=== PATIENT | female | born 1980 | race Caucasian/White ===

== ENCOUNTER 2020-04-17 16:50 | Outpatient (CLI) | payer OTHER, SELFPAY ==
--- NOTE | ~2020-04-17 | MR_ITS ---
EXAMINATION: MR knee RT wo con DATE: 04/17/2020 17:36 INDICATION: Right knee pain. Chondromalacia patellae TECHNIQUE: Magnetic resonance imaging (MRI) of the right knee was performed without intravenous contr ast. Sequences included coronal PD-weighted FSE, coronal PD-weighted FS FSE, sagittal T2-weighted FS E, sagittal PD-weighted FS FSE and axial PD weighted fat saturated FSE. COMPARISON: None. FINDINGS: Medial compartment: Medial meniscus is normal. Articular cartilage is normal. Lateral compartment: Horizontal tear of the anterior horn of the lateral meniscus which extends to the cephalad articular surface. There is a large multilobulated para meniscal cyst extending medially along the periphery of the anterior horn and along the transverse meniscal ligament along the inferior surface of Hoffa's f at pad. Its entirety this measures 2.7 cm medial collateral, 1.7 cm AP and up to 1.0 cm in craniocaud al thickness. Cartilage thickness at the lateral tibial plateau with deep chondral fissuring centrall y and extending posteriorly with negligible underlying subarticular edema. Cartilage along the weight bearing lateral femoral condyle appears relatively preserved. Patellofemoral compartment: More region of chondral swelling without definitive fissuring at the central aspect of the medial tro chlea. Remainder of the cartilage in the patellofemoral compartment appears normal. Ligaments and tendons: Posterior cruciate ligament is normal. The anterior cruciate ligament appears intact but with a coupl e small intrasubstance ganglion cysts along the cephalad aspect of the ligament. The medial collatera l ligament and fibular collateral ligament complex are normal. The extensor mechanism is normal. The visualized medial and lateral hamstring tendons as well as the iliotibial band are normal. Fluid: Physiologic amount of fluid in the joint space. Suprapatellar plical band is present. No loose osteoc hondral bodies identified. Small Conteh's cyst extending for approximately 6 cm craniocaudally but leeanne suring only up to 12 x 7 mm in maximal transaxial dimensions. Osseous/other: Bone alignment is normal. No fracture or pathologic marrow replacing process. IMPRESSION: 1. Tear of the anterior horn of the lateral meniscus with 2.7 x 1.7 x 1.0 cm multilobulated para meni scal cyst extending along the inferior margin of Hoffa's fat pad anterior to the trochlear groove. 2. Regions of high-grade chondromalacia at the lateral tibial plateau and small region of low grade c hondral malacia at the medial trochlea. 3. Small Conteh's cyst. Reviewed, dictated and finalized at location A. COMPLIANCE INTERNSHIP IMPRESSION: 1. Tear of the anterior horn of the lateral meniscus with 2.7 x 1.7 x 1.0 cm mu ltilobulated para meniscal cyst extending along the inferior margin of Hoffa's fat pad anterior to the trochlear groove. 2. Regions of high-grade chondromalacia at the lateral tibial plateau and small region of low grade chondral malacia at the medial trochlea. 3. Small Conteh's cyst.
== END 2020-04-17 16:51 | disposition home or self-care (01) ==
LOC: ANHIMG 16:52
PROVIDERS: PCP Family Medicine; Visit Provider Orthopaedic Surgery
DX: M22.41 Chondromalacia patellae, right knee (principal); S83.281A Other tear of lateral meniscus, current injury, right knee, initial encounter; M71.21 Synovial cyst of popliteal space [Baker], right knee
CPT/HCPCS: 73721

== ENCOUNTER → 2020-05-09 00:32 | Outpatient (CLI) | payer OTHER, SELFPAY ==
[2020-05-09 20:38] LABS: SARS-CoV-2 RNA PCR Negative
== END ==
PROVIDERS: PCP Family Medicine; Visit Provider Orthopaedic Surgery
DX: Z01.812 Encounter for preprocedural laboratory examination (principal); Z20.822 Contact with and (suspected) exposure to COVID-19
CPT/HCPCS: C9803; U0003; U0005

== ENCOUNTER 2020-05-12 02:06 | Day surgery (SDC) | payer OTHER, SELFPAY ==
[2020-05-06 10:50] VITALS: BMI 30.7
--- NOTE | 2020-05-06 11:08 | PC.NURSE ---
Patient tested positive for Covid at the end of Nov/ beginning of Dec. Patient was not hospitalized and experienced only mild symptoms. Patient is asymptomatic at this time.
--- NOTE | 2020-05-11 11:01 | WPDANESEPPF ---
Anes - Initial Pre Proc Eval Procedure: Operation Date: 05/12/20 10:30 Proposed Procedures p Right Knee Arthroscopic Partial Lateral Meniscectomy with Cyst Excision - Raffy Staley MD Date/Time: 05/11/20 11:01 Surgeon: Raffy Staley MD Pre Op Diagnosis: right lateral meniscus tear,meniscal cyst Patient Data Age: 39 Gender: F Height: 1.68 m Weight: 86.18 kg Allergies Allergy/AdvReac Type Severity Reaction Status Date / Time codeine AdvReac Nausea Verified 05/12/20 09:25 Home Medications Medication Instructions Recorded Confirmed Type alprazolam 1 mg tablet 1 mg PO TID PRN 10/15/19 05/12/20 History bupropion HCl 450 mg 24 hr tablet, 450 mg PO DAILY 10/15/19 05/12/20 History extended release sumatriptan succinate 100 mg tablet 100 mg PO ONCE PRN #27 tablet 11/08/19 05/12/20 Rx topiramate 25 mg tablet 50 mg PO BID #360 tablet 11/08/19 05/12/20 Rx levonorgestrel 20 mcg/24 hours (6 1 device INTRAUTERINE .once every 02/12/20 05/12/20 History yrs) 52 mg intrauterine device 5 years ea ondansetron 8 mg disintegrating 8 mg PO Q8H PRN #30 tablet 02/14/20 05/12/20 Rx tablet thyroid (pork) 15 mg tablet 15 mg PO DAILY #30 tablet 03/30/20 05/12/20 Rx ibuprofen 800 mg PO Q6H PRN 05/06/20 05/12/20 History Patient hx anesthesia problems: none Family hx anesthesia problems: none PMFSH Past Medical History Medical History (Updated 05/11/20 @ 11:01 by Cornelio Urbina MD) Anxiety Depression Dysfunctional uterine bleeding High risk HPV infection 01/22/2020 HSV-1 (herpes simplex virus 1) infection Hx of migraine headaches Obesity Other jail (current) drug therapy Surgical History Surgical History H/O section 3--11, c/s, female, 6#1 Family History Family History Mother Hypertension CAD (coronary artery disease) Acute myocardial infarction Hypercholesteremia Father Diabetes mellitus Hypertension Hypothyroid Pulmonary fibrosis Hypercholesteremia Grandparent Diabetes mellitus grandmother Hypertension grandmother CAD (coronary artery disease) CHF (congestive heart failure) Alzheimer disease Carcinoma of colon grandmother Acute myocardial infarction grandmother Hypercholesteremia grandmother Leukemia Sibling Hypothyroid Social History Social History Smoking packs per day: 0.5 Smoking cigarettes per day: 10.0 Years smoked: 19 Smoking pack-years: 9.50 Smoking status: Current every day smoker Tobacco type: cigarettes Second hand tobacco smoke exposure: No Alcohol intake: never Substance use: never Substance use type: does not use Living arrangements: with family Spiritual care concerns: No Anes - Eval Final PreProcedure Day of Procedure 05/11/20 11:01 Patient weight: obese Heart: regular rate and rhythm Lungs: clear to auscultation and normal air movement Airway: Mallampati scale class II Neurological: alert and oriented Last oral intake: >/= 8 hours ASA classification: II Emergent: no Anesthetic plan: proceed Anesthesia type and monitoring: general LMA Informed Consent: The patient's anesthetic plan and its attendant risks and benefits were discussed with the patient/family/POA. Questions were solicited and answers provided to the satisfaction of the patient/family/POA.
[2020-05-12] VITALS (9 sets, daily range): BP systolic 105–141; BP diastolic 66–90; PULSE 67–99; RESP 14–20; TEMP 36.6–36.7; O2SAT 99–100
--- NOTE | 2020-05-12 07:13 | WPDHPUPDATE1 ---
History and Physical Update Update Date/Time: 05/12/20 07:13 History and Physical has been reviewed, including an updated exam of the patient. There are NO changes in the patient's condition. Risks, benefits, and alternatives have been discussed and questions answered. Patient agrees to proceed with procedure.
[2020-05-12] MEDS: ACETAMINOPHEN 500 MG TABLET 1000 MG PO (09:09)
[2020-05-12] MEDS: LACTATED RINGERS 1,000 ML 30 ML IV CONT ×2 (09:10→11:09)
[2020-05-12] MEDS: KETOROLAC 15 MG/ML VIAL (*BKC) IV PUSH (09:11)
[2020-05-12] MEDS: ceFAZolin 2 GM/D5W 50 ML 2 GM/50 ML BAG IVPB (10:06)
[2020-05-12] MEDS: BUPIVACAINE/EPINEPHRINE 0.5% 30 ML VIAL INFILTRATE (10:34)
--- NOTE | 2020-05-12 11:06 | PM.PROC ---
Procedure Note - Detailed Date of procedure: 05/12/20 Pre-op diagnosis: right lateral meniscus tear,meniscal cyst Post-op diagnosis: same Procedure performed: Arthroscopic partial lateral meniscectomy, and excision of large anterior meniscal cyst. Description of procedure: The cyst was behind the patellar tendon. There was tearing of the anterior horn of the lateral meniscus. Large bulbous cyst was anterior to the transverse inter meniscal ligament. This was a very robust structure. The cyst was manipulated and displaced posteriorly underneath this meniscus ligament. The cyst was then removed with the arthroscopic shaver. Moderate splitting and tearing of the anterior fibers of the lateral meniscus was treated with the shaver and the radiofrequency probe. The radiofrequency probe was also used to tighten and d?bride the tissues in the anterior fat pad area and the region of the cyst on the proximal tibia. The ACL had some evidence of low-grade partial injury. Some of the attachment appeared to be more posterior than is typical. It was quite functional with Alla's testing. Slight tightening with the radiofrequency probe at the lowest setting was performed where the fibers appeared slightly more lax anteriorly. The lateral compartment had significant grade 2/Iii chondromalacia with softening at the weight-bearing portion. Mild fraying of the inner edge of the meniscus was treated with debridement. However, most of the remaining lateral and posterior meniscus was intact. Some fibers of the ACL appeared to be displacing laterally slightly. These were easily debrided with the shaver. The femoral cartilage was entirely normal. The patella appeared normal as well. Evidence for lateral tilting was modest. The medial articular cartilage was normal as was the meniscus. No other abnormal findings or loose bodies in the suprapatellar pouch. Very subtle early ridge of reactive bone /osteophyte along the medial femoral condyle. No evidence of significant plica shelf adjacent. Anesthesia: GETA Surgeon: Raffy Staley MD Vice President Of Talent Management: Ivett Zeng PA-C Estimated blood loss (mL): 5 Complications: None Condition: stable Disposition: PACU Findings: Procedure Details: The patient was identified and the surgical site confirmed and signed in the preoperative holding area. Antibiotics were started per protocol. She was brought to the operative room and transferred to the OR table. A general anesthetic was administered. Supine position with the operative lower extremity position in the leg grimes after placement of a well padded tourniquet. The leg support was lowered and the contralateral limb was supported with a soft bolster. The knee was prepped and draped in the usual sterile fashion. A time-out was performed. The portal sites were marked and infiltrated with 0.5% Marcaine 20 mL. The limb was exsanguinated and the tourniquet inflated to 300 mL Hg. Standard inferolateral and inferomedial portals were established. Inflow was obtained with the saline pump. The camera was introduced. Diagnostic inspection of the joint was accomplished. The meniscus was debrided with the arthroscopic shaver and Radiofrequency probe. The cyst was manipulated into the joint and removed as described above. The ACL showed evidence of low-grade chronic injury. This was quite subtle but gentle debridement around the lateral and distal ACL combined with touching some of the looser areas with the radiofrequency probe, improve the overall appearance of the tendon. Dynamic functional testing was normal throughout. The arthroscopic instruments were removed. The tourniquet released and wounds closed with subcutaneous 3-0 Monocryl absorbable suture. Steri strips and a sterile dressing were applied. A light elastic wrap was placed. The patient was extubated and brought to the recovery room in stable condition.
[2020-05-12] MEDS: fentaNYL CITRATE INJ (*CRX) 100 MCG/2 ML VIAL 25 MCG IV PUSH ×2 (11:17→11:34)
--- NOTE | 2020-05-12 11:22 | SUR.PREOP ---
1107 NEURO ASSESSMENT DOCUMENTED BY THIS STAFF MEMBER WAS DONE AT 0900 NOT 1104
[2020-05-12] MEDS: oxyCODONE HCL (*CRX) 5 MG TAB IR PO (12:53)
--- NOTE | 2020-05-12 16:46 | SUR.PHASEII ---
[id number] spoke with pt about current pain medication situation. damian is also out of [place], told to call dr gardiner office and to go through the exchange to get a hold of him to give him this message about the prescription.
== END 2020-05-12 13:35 | disposition home or self-care (01) ==
PROVIDERS: PCP Family Medicine; Visit Provider Orthopaedic Surgery
PROC: (CPT 29870; principal; 2020-05-12 10:30)
DX: S83.281A Other tear of lateral meniscus, current injury, right knee, initial encounter (principal); M23.041 Cystic meniscus, anterior horn of lateral meniscus, right knee; X58.XXXA Exposure to other specified factors, initial encounter; M94.261 Chondromalacia, right knee; F41.8 Other specified anxiety disorders; B00.9 Herpesviral infection, unspecified; E66.9 Obesity, unspecified; Z68.32 Body mass index [BMI] 32.0-32.9, adult; F17.210 Nicotine dependence, cigarettes, uncomplicated
CPT/HCPCS: 29881; A9270; J0690; J1100; J1885; J2250; J2370; J2405; J2704; J3010; J7120

== ENCOUNTER 2020-05-29 11:18 | Outpatient (CLI) | payer OTHER, SELFPAY ==
[2020-05-29 12:46] LABS: HIV 1/2 Ab P24 Ag Result Negative (Negative)
[2020-05-29 13:30] LABS: Hepatitis B Surface Antigen Negative (Negative)
[2020-05-29 13:47] LABS: Hepatitis C Virus Antibody Negative (Negative)
[2020-06-01 09:55] LABS: Rapid Plasma Reagin Non-Reactive (NonReactive)
== END 2020-05-29 11:19 | disposition home or self-care (01) ==
LOC: ANHLAB 11:19
PROVIDERS: PCP Family Medicine; Visit Provider Obstetrics & Gynecology
DX: Z20.828 Contact with and (suspected) exposure to other viral communicable diseases (principal)
CPT/HCPCS: 36415; 86592; 86695; 86696; 86703; 86803; 87340; G0432

== ENCOUNTER 2020-11-16 14:01 | Outpatient (CLI) | payer OTHER, SELFPAY ==
--- NOTE | ~2020-11-16 | XR_ITS ---
XR lumbar spine 6V w bending DATE: 11/16/2020 14:56 INDICATION: Low back pain TECHNIQUE: Standing AP, lateral, coned lateral lumbosacral and oblique views. Standing flexion and ex tension lateral views. COMPARISON: None FINDINGS: There is mild rotatory dextroscoliosis of the lumbar spine. No fracture or bone destruction, spondylolysis or spondylolisthesis is detected. There is no instabil ity on flexion or extension. No spondylolysis or spondylolisthesis. The lumbar pedicles are intact. There is limited degenerative disc disease including mild degenerative disc disease at L1-2, minimal degenerative disc disease at L3-4. The sacroiliac joints are intact. IMPRESSION: Mild rotatory dextroscoliosis and mild degenerative disc disease Reviewed, dictated and finalized at location A.
[2020-11-16 19:52] LABS: Basophils Absolute Auto 0.1 K/mm3 (0.0-0.1); Basophils Percent Auto 0.8 % (0.2-1.2); Eosinophils Absolute Auto 0.1 K/mm3 (0-0.3); Eosinophils Percent Auto 1.2 % (0-4.4); Hematocrit 46.5 % (37.0-47.0); Hemoglobin 14.8 g/dL (12.0-15.0); Immature Granulocyte Absolute 0.01 K/mm3 (0.00-0.031); Immature Granulocyte Percent A 0.1 % (0-0.5); Lymphocytes Absolute Auto 2.66 K/mm3 (0.9-3.2); Lymphocytes Percent Auto 26.9 % (18.3-44.2); Mean Corpuscular HGB Conc 31.8 g/dl (32-36); Mean Corpuscular Hemoglobin 28.2 pg (26-34); Mean Corpuscular Volume 88.7 fl (80-100); Mean Platelet Volume 11.3 fl (7.4-10.4); Monocytes Percent Auto 9.8 % (2.6-8.5); Neutrophils Percent Auto 61.2 % (45.5-73.1); Platelet Count Result 266 k/mm3 (150-375); Red Blood Count 5.24 M/mm3 (4.2-5.4); Red Cell Distribution Width 13.8 % (11.5-14.5); White Blood Count 9.9 K/mm3 (4.5-10.0)
[2020-11-16 20:00] LABS: Add Urine Microscopic? YES; Amorphous Sediment Urine Moderate; Appearance Urine Cloudy (Clear); Bilirubin Urine Negative (Negative); Blood Urine Negative (Negative); Color Urine Yellow (Yellow); Glucose Urine UA Negative (Negative); Ketones Urine Negative (Negative); Leukocyte Esterase Ur Negative LEU/UL (NEGATIVE); Nitrate Urine Negative (Negative); Protein Urine 1+ mg/dL (Negative); RBC Urine 0-2 /hpf (0-2); Specific Grav Ur 1.023 (1.001-1.035); Squamous Epithelial Cell Urine Moderate /hpf (Few); WBC Urine 0-3 /hpf (0-3)
[2020-11-16 20:34] LABS: Anion Gap 10 mmol/L (8-16); Blood Urea Nitrogen 16 mg/dL (7-17); Calcium 10.3 mg/dL (8.4-10.2); Carbon Dioxide 23 mmol/L (22-30); Chloride 106 mmol/L (98-107); Estimated Glomerular Filt Rate > 60; Glucose 86 mg/dL (65-110); Potassium 4.3 mmol/L (3.4-5.0); Sodium 139 mmol/L (137-145)
[2020-11-16 20:38] LABS: Vitamin D 25 Hydroxy 50.3 ng/mL
[2020-11-16 21:31] LABS: Folic Acid 9.2 ng/mL (2.76->20)
== END 2020-11-16 14:02 | disposition home or self-care (01) ==
LOC: ANHBWCLAB 14:04
PROVIDERS: PCP Family Medicine; Visit Provider Family Medicine
DX: M54.5 Low back pain (principal); R30.0 Dysuria; G89.29 Other chronic pain; Z82.62 Family history of osteoporosis; Z79.899 Other long term (current) drug therapy; M41.86 Other forms of scoliosis, lumbar region; M51.36 Other intervertebral disc degeneration, lumbar region
CPT/HCPCS: 36415; 72114; 80048; 81001; 82306; 82607; 82746; 85025; 87086